=== PATIENT | male | born 1970 | race Caucasian/White ===

== ENCOUNTER 2017-04-10 05:39 | Outpatient (CLI) | payer OTHER ==
[~2017-04-10] VITALS: Ht 177.8 cm; Wt 104.4 kg
[~2017-04-10 05:39] MED LIST: ALPR1TAB2 PO; ASPI-586 PO; NAPR-243 PO; PRED10TA PO; SULF1TAB38 PO; TRAM50TA2 PO
[2017-04-14] MEDS ORDERED: PANT40TA2 PO (12:57)
[2017-04-14] MEDS ORDERED: SUCR1TAB36 PO (12:57)
== END 2017-04-10 14:06 ==
LOC: PREOP 05:39
PROVIDERS: ATTEND Surgery
DX: Z01.818 Encounter for other preprocedural examination (principal); Z12.11 Encounter for screening for malignant neoplasm of colon; Z86.010 Personal history of colon polyps; R04.2 Hemoptysis

== ENCOUNTER 2017-04-14 10:46 | Day surgery (SDC) | payer OTHER ==
[~2017-04-14] VITALS: Ht 177.8 cm; Wt 104.4 kg
[2017-04-14] MEDS ORDERED: NS IV 1000 ML 1,000 ML IV STA (10:53)
[2017-04-14] MEDS ORDERED: NS IV 500 ML 500 ML ONE (10:53)
--- NOTE | 2017-04-14 10:56 | Conscious Sedation/ASA ---
Conscious Sedation Pre-Proced Time Reviewed: 10:45 ASA Class: 2 Airway Mallampati Classification: ([place] appropriate class) I. II. III, IV Lungs Heart ASA score ASA 1: a normal healthy patient ASA 2: a patient with a mild systemic disease (mid diabetes, controlled hypertension, obesity ASA 3: a patient with a severe systemic disease that limits activity (angina , COPD, prior Myocardial infarction) ASA 4: a patient with an incapacitating disease that is a constant threat to life (CHF, renal failure) ASA 5: a moribund patient not expected to survive 24 hrs. (ruptured aneurysm) ASA 6: a declared brain patient whose organs are being harvested. For emergent operations, add the letter E after the classification Grade 2 Sedation Plan: Analgesia, Amnesia, Plan communicated to team members, Discussed options with patient/fam, Discussed risks with patient/fam Note The patient is an appropriate candidate to undergo the planned procedure, sedation, and anesthesia. The patient immediately re-assessed prior to indication. ROZINA BLACK MD Apr 14, 2017 10:56 am
--- NOTE | 2017-04-14 10:57 | Progress Note-Pre Operative ---
Pre-Operative Progress Note H&P Reviewed The H&P was reviewed, patient examined and no changes noted. Date Seen by Provider: Apr 14, 2017 Time Seen by Provider: 10:45 Date H&P Reviewed: Apr 14, 2017 Time H&P Reviewed: 10:45 Pre-Operative Diagnosis: hx polyps, hematamesis ROZINA BLACK MD Apr 14, 2017 10:57 am
[2017-04-14] MEDS ORDERED: ACETAMINOPHEN 325 MG TABLET/CAPLET (TYLENOL) PO PRN (11:00)
[2017-04-14] MEDS ORDERED: HURRICAINE EXT TUBE (BENZOCAINE) XX PRN (11:00)
[2017-04-14] MEDS ORDERED: LIDOCAINE JELLY 2% (XYLOCAINE) 5 ML TUBE MM PRN (11:00)
[2017-04-14] MEDS ORDERED: ONDANSETRON 4 MG/2 ML (SDV) Z0FRAN IV PRN (11:00)
[2017-04-14] MEDS ORDERED: fentaNYL INJECTION 100 MCG/2 ML AMP IVP PRN (11:00)
[2017-04-14] MEDS ORDERED: LIDOCAINE JELLY 2% (XYLOCAINE) 5 ML TUBE ONE (11:49)
[2017-04-14] MEDS ORDERED: MIDAZOLAM 2 MG/2 ML (VERSED) VIAL ONE ×7 (11:49→15:01)
[2017-04-14] MEDS: fentaNYL INJECTION 100 MCG/2 ML AMP IVP PRN ×3 (12:04→12:30)
[2017-04-14] MEDS: MIDAZOLAM 2 MG/2 ML (VERSED) VIAL IVP PRN ×6 (12:05→12:28)
[2017-04-14] MEDS ORDERED: fentaNYL INJECTION 100 MCG/2 ML AMP ONE (12:20)
--- NOTE | 2017-04-14 12:56 | Progress Note-Post Operative ---
Post-Operative Progess Note Surgeon (s)/Spring Intern (s) Surgeon ROZINA BLACK MD Spring Intern: none Pre-Operative Diagnosis hx polyps, hematamesis Post-Operative Diagnosis reflux esophagitis(class B), small HH(2cm), mil-moderate gastritis. chronic stage 1 ext and int hemorrhoids. Procedure & Operative Findings Date of Procedure 04/14/17 Procedure Performed/Findings EGD with bx. Colonoscopy. Anesthesia Type CS Estimated Blood Loss Estimated blood loss (mL): minimal Specimens/Packing Specimens Removed GE jxn, antrum. ROZINA BLACK MD Apr 14, 2017 12:56 pm
[2017-04-14] MEDS ORDERED: PANT40TA2 PO (12:57)
[2017-04-14] MEDS ORDERED: SUCR1TAB36 PO (12:57)
--- NOTE | 2017-04-14 12:58 | Discharge Inst-Surgical ---
D/C Lap Instructions-KIDO New, Converted, or Re-Newed RX: RX on Chart Follow Up PRN Activity as tolerated High Fiber Diet 25g or more per day Avoid Alcohol, Caffeine, Spicy [place] and Acid foods. Drink 64 fluid oz or more of fluids per day. Symptoms to Report: Fever over 101 degree F, Nausea/Vomiting If any problems/questions: Contact your physician or go to Emergency Room ROZINA BLACK MD Apr 14, 2017 12:57 pm
[2017-04-14 13:10] VITALS: BP 128/71
--- NOTE | 2017-04-14 13:13 | OPERATIVE REPORT ---
DATE OF SERVICE: 04/14/2017 PRIMARY FIELD OPERATIONS MANAGER: Radha Carson APRN PREOPERATIVE DIAGNOSIS: History of colon polyp, hematemesis. POSTOPERATIVE DIAGNOSIS: Reflux esophagitis class B, small hiatal hernia, approximately 2 cm in size, mild to moderate gastritis. A chronic stage I external and internal hemorrhoids. Remainder of the rectum and colon were normal. PROCEDURE: EGD with biopsy, colonoscopy. SURGEON: Dr. Black. ANESTHESIA: Conscious sedation. ESTIMATED BLOOD LOSS: Minimal. FINDINGS: EGD: Reflux esophagitis class B, small hiatal hernia approximately 2 cm in size, mild to moderate gastritis. No ulcers, polyps or any neoplasms as well as no abnormal vasculature. Colonoscopy: Chronic stage I external and internal hemorrhoids. The remainder of the rectum and colon were normal. There were no polyps identified. DISPOSITION: The patient tolerated the procedure well. INDICATIONS: The patient is a 38-year-old male who was referred over to us for an EGD and colonoscopy. He has had previous colonoscopies before where polyps were identified, removed and found to be benign. His last one was around 2007. He reports that he was then near [place], [place], for a family vacation and had a 3 day episode of hematemesis that was initiated by a cough. He was seen in the Emergency Department in [place] and underwent evaluation including a CT scan which did not show any abnormalities. He has not had any issues of hematemesis since that time. He reports that he has some reflux; however, not severe, and only pertaining to spicy foods. He reports that he does drink alcohol and drinks beer on a daily basis. However, did recently switch over to mixed drinks. DESCRIPTION OF PROCEDURE: The patient was brought to the endoscopy suite, laid in the left lateral decubitus position. After adequate IV pain and sedative medications and conscious sedation anesthesia, the mouthpiece was applied. Endoscope was placed in the mouth, visualizing the pharynx and hypopharyngeal region. Vocal cords, epiglottis and vallecula identified and appeared to be normal. The endoscope was then gently intubated at the esophageal opening, esophagus insufflated. Endoscope was then advanced to the first, second and third portions of the esophagus. At the level of the GE junction, a reflux esophagitis class B identified. There were no ulcers or strictures identified in this region. A biopsy was taken with forceps with visualization of good hemostasis. The endoscope was then advanced in the stomach. The endoscope retroflexed, visualizing a small hiatal hernia approximately 2 cm in size. A mild to moderate severity gastritis was noted. There were no formal ulcers, polyps or any neoplasms as well as no abnormal vasculature including no esophageal or gastric varices. A biopsy was taken of the stomach and antrum with visualization of good hemostasis. The endoscope was then advanced to the pylorus and the first and second portions of the duodenum which appeared normal. The endoscope was then slowly withdrawn taking a second look and suctioning residual air with no additional findings. The patient tolerated this portion of the procedure well. For his reflux esophagitis, hiatal hernia and gastritis, we will recommend the necessary lifestyle and diet accommodation including cessation of alcoholic and caffeinated beverages as well as avoidance of spicy, greasy and acidic foods. Also needs to proceed with small more frequent meals, avoidance of eating at night as well as head elevation while laying supine. We will also start him on Protonix 40 mg daily, as well as Carafate 1 gram q.i.d. for the next two weeks and also on a p.r.n. basis. Under the same conscious sedation anesthesia, we then proceeded with the colonoscopy portion of the procedure. A digital rectal examination was performed which revealed chronic stage I external and internal hemorrhoids, not actively edematous or inflamed and no bleeding. Normal sphincter tone was felt and there were no palpable masses. Prostate gland was palpable and appeared normal. The endoscope was then intubated into the anus and rectum and gently insufflated. The endoscope was then advanced thru the valves of [place] of the rectum with no polyps or any neoplasms identified. We then proceeded through the sigmoid colon where no diverticulosis was identified. Endoscope was then advanced to the remainder of the descending, transverse, and ascending colon to the cecum. These segments were normal as well. There were no polyps or any neoplasms identified throughout the colon or rectum. The endoscope was then slowly withdrawn while taking a second look and suctioning residual air with no additional findings. The patient tolerated the procedure well. We will recommend a high fiber diet with at least 30 grams of fiber per day as well as at least 64 fluid ounces of water daily to promote soft stools on a daily basis. We will recommend a followup colonoscopy in approximately 10 years. Job ID: [id number] DocumentID: [id number] Dictated Date: 04/14/2017 12:51:46 Sizing End Bander Date: 04/14/2017 13:12:26 Dictated By: ROZINA BLACK MD MTDD
[2017-04-14 13:35] VITALS: BP 132/77
[2017-04-14 13:40] VITALS: BP 132/77
== END 2017-04-14 13:40 | disposition home or self-care (01) ==
LOC: ENDO 10:46
PROVIDERS: ATTEND Surgery
DX: Z12.11 Encounter for screening for malignant neoplasm of colon (principal); Z86.010 Personal history of colon polyps; K64.0 First degree hemorrhoids; K21.0 Gastro-esophageal reflux disease with esophagitis; K44.9 Diaphragmatic hernia without obstruction or gangrene; K29.70 Gastritis, unspecified, without bleeding; F41.9 Anxiety disorder, unspecified; F17.210 Nicotine dependence, cigarettes, uncomplicated; F17.220 Nicotine dependence, chewing tobacco, uncomplicated; Z79.899 Other long term (current) drug therapy

== ENCOUNTER 2022-01-26 05:27 | Outpatient (CLI) | payer OTHER ==
[~2022-01-26] VITALS: Ht 18.3 cm; Wt 109.1 kg
[~2022-01-26 05:27] MED LIST changes: +PANT40TA2 PO; +SUCR1TAB36 PO
[2022-01-31] MEDS ORDERED: MELO15TA14 PO (10:04)
[2022-01-31] MEDS ORDERED: ATOR10TA66 PO (10:04)
[2022-02-02] MEDS ORDERED: TRAM50TA3 PO (10:46)
== END 2022-01-31 10:23 | disposition home or self-care (01) ==
LOC: PREOP 05:27
PROVIDERS: ATTEND Surgery
DX: Z01.818 Encounter for other preprocedural examination (principal)

== ENCOUNTER 2022-02-02 06:56 | Day surgery (SDC) | payer OTHER ==
[2022-02-02] VITALS (8 sets, daily range): BP systolic 130–159; BP diastolic 95–99
[~2022-02-02] VITALS: Ht 180 cm; Wt 109.0 kg
[~2022-02-02 06:56] MED LIST changes: +ATOR10TA66 PO; +MELO15TA14 PO
[2022-02-02] MEDS ORDERED: BUP/EPI 0.5% 1:200,000 (SENSORCAINE) 30 ML VIAL ONE (07:10)
[2022-02-02] MEDS ORDERED: ceFAZolin 2 GM IV Premixed 50 ML IV ONE (07:15)
[2022-02-02] MEDS: LACTATED RINGERS 1,000 ML IV PRN ×2 (07:50→10:07)
--- NOTE | 2022-02-02 08:25 | Progress Note-Pre Operative ---
Pre-Operative Progress Note H&P Reviewed The H&P was reviewed, patient examined and no changes noted. Time Seen by Provider: 08:13 Date H&P Reviewed: February 02, 2022 Time H&P Reviewed: 08:13 Pre-Operative Diagnosis: Left inguinal hernia, site marked RAFA LEBLANC DO February 02, 2022 08:24
[2022-02-02] MEDS ORDERED: MIDAZOLAM 2 MG/2 ML (VERSED) VIAL ONE (08:44)
[2022-02-02] MEDS ORDERED: ONDANSETRON 4 MG/2 ML (SDV) Z0FRAN ONE (08:44)
[2022-02-02] MEDS ORDERED: SEVOFLURANE (ULTANE) 15 ML INHAL SOLN ONE ×2 (08:44→10:47)
[2022-02-02] MEDS ORDERED: proPOfol 200 MG/20 ML (DIPRIVAN) VIAL IV ONE (08:44)
[2022-02-02] MEDS ORDERED: fentaNYL INJ 100 MCG/2 ML AMP ONE (08:44)
[2022-02-02] MEDS ORDERED: LIDOCAINE PF 2% 5 ML (XYLOCAINE) VIAL ONE (08:44)
[2022-02-02] MEDS ORDERED: HYDROmorphone 2 MG/ML VIAL (DILAUDID) ONE (09:56)
[2022-02-02] MEDS ORDERED: ROCURONIUM 50 MG/5 ML (ZEMURON) VIAL IV ONE ×2 (10:14→10:15)
[2022-02-02] MEDS ORDERED: GLYCOPYRROLATE 0.2 MG/ML (ROBINUL) 2 ML VIAL ONE (10:35)
[2022-02-02] MEDS ORDERED: NEOSTIGMINE 3 MG/3 ML VIAL ONE (10:35)
--- NOTE | 2022-02-02 10:45 | Progress Note-Post Operative ---
Post-Operative Progess Note Surgeon (s)/Transfer Engineer (s) Surgeon RAFA LEBLANC DO Transfer Engineer: Ayana Pre-Operative Diagnosis Left inguinal hernia, site marked Post-Operative Diagnosis Incarcerted Left inguinal hernia Cord lipoma ??obturator defect Procedure & Operative Findings Date of Procedure 02/02/22 Procedure Performed/Findings After informed consent was obtained, the patient was brought to the operating room and placed on the operating table in a supine position. He was sterilely prepped and draped in a normal fashion. Local lidocaine was used to infiltrate the skin above the umbilicus. I made an incision with #11 blade, carried down to the skin into subcutaneous tissue and then deepened down the subcutaneous tissue with Bovie electrocautery down to the fascia. Fascia was incised with Bovie electrocautery and bluntly entered the abdomen, swept a finger around, placed 0 Vicryl bdhaoc-cr-pizgc suture and placed limited trocar port under direct visualization. Created pneumoperitoneum, able to visualize the hernia and took a picture of this and then placed two 8 mm ports about 10 cm on either side of the midline port using a local lidocaine, 11 blade for stab incision and then advanced the robotic port under direct visualization. Once this was in, I then placed the patient in Trendelenburg and then placed the working instruments, the fenestrated bipolar and the scissors. Looked on the right side and did not see any signs of inguinal hernia. I could see small indirect/direct hernia defect on the left side. Next, I came across the peritoneum approximately 8 cm away from the hernia defect, going from the median umbilical ligament and going laterally about 17cm. I then carefully dissected the visceral peritoneum away and down and then in the midline, went through the parietal side and dissected down to the pubic tubercle, dissecting this down carefully pushing the peritoneum away, I was able to then visualize the pubic tubercle and Jose Manuel's ligament. I went 2 cm posterior and at this point, we then had a critical view of the dissection, able to dissect 2 cm across the midline to the right side, 2 cm posterior to the Jose Manuel's ligament, able to then parietalize the vas deferens and spermatic vessels right at the groove between Jose Manuel's and iliac vein and able to dissect, make sure there was no peritoneum between those two, able to see the indirect hernia space, took a picture of this, looked at the femoral space (no hernia seen); but there appeared to be an obturator defect. Then I carefully teased out the hernia sac and could visualize the indirect hernia space. Next I looked on the cord and cord structures. There was a large cord lipoma that I was able to reduce and cut off. This was then removed throught the port to get it out of the peritoneal space. I could clearly see the inguinal canal and the indirect space. Next I carried the posterior lateral dissection all the way out and then placed a 12 x 17 Midwieght Bard 3DMax mesh. It laid in nicely, cover ed the hernia defect and the rest of the area. It was above the peritoneum, sutured it at the pubic tubercle with a 3-0 Vicryl suture and tied this off. I next sutured out laterally to hold the mesh in place and it appeared to lay in very nicely. I then brought down the pneumoperitoneum to about 8 mmHg and then started closing the peritoneum. Started laterally and used a 2-0 V-lock barbed suture to start a running stitch to close the peritoneum. This was closed nicely, took a picture of the closure at this point, then removed both needles had switched to a suture deliver driver from the scissors. The patient was then placed back supine, removed all ports under direct visualization, allowed pneumoperitoneum to escape and then closed the supraumbilical incision, closing the fascia with 0 Vicryl suture previously placed. Copiously irrigated all incisions and then closed the two small 8 mm incisions with two interrupted 4-0 undyed Monocryl subcuticular stitches and closed the supraumbilical incision with three interrupted undyed Monocryl subcuticular stitch. Area was cleaned and dried. Dermabond was placed. The patient tolerated the procedure. The sponge, instrument and needle counts were correct at the end of the case. Dr. Piña assisted during this surgery by making incisions, closing incisions, helping to identify anatomy and passing/retrieving suture and needles. Anesthesia Type GET Estimated Blood Loss Estimated blood loss (mL): scant Specimens/Packing Specimens Removed cord lipoma RAFA LEBLANC DO February 02, 2022 10:45
[2022-02-02] MEDS ORDERED: TRAM50TA3 PO (10:46)
--- NOTE | 2022-02-02 10:48 | Discharge Inst-Surgical ---
Discharge Inst-Surgical Depart Medication/Instructions New, Converted or Re-Newed RX: Transmitted to Pharmacy Patient Instructions Follow up Appt: Make appointment for 1 week. [phone] Instructions: No lifting greater than 20 pounds. No strenuous activity. May shower in 24 hours, no tub bath or soaking. Use incentive spirometer at home as directed. No Smoking Skin/Wound Care: May remove bandages in am. You need to leave the Dermabond on incision it will fall off on it's own. Symptoms to Report: Appetite Changes, Extremity Discoloration, Numbness/Tingling, Swelling Increased, Bleeding Excessive, Eyesight Changes, Pain Increased, Urine Color Change, Constipation(Persistent), Fever over 101 degree F, Pain/Pressure in chest, Urinating Difficulty, Cough Up/Vomit Blood, Heart Beat Irreg/Pounding, Pain/Pressure in jaw, Cramps in feet or legs, Lightheadedness, Pain/Pressure in shoulder, Diarrhea(Persistent), Memory Changes Suddenly, Questions/Concerns, Weight gain consecutive days, Dizziness/Fainting, Nausea/Vomiting, Shortness of Breath, Weight gain over 2 pounds If questions or concerns contact your physician Or seek help at emergency department. Activity Activity as Tolerated: Yes Activity Instructions: Avoid Stress to Incision Driving Instructions: No Driving/Refer to Dr. [place] Discharge Diet: No Restrictions Diet After 24 Hours: Clear Liquid if Nauseous If Any Problems/Questions/Issu: Contact Your Physician, Go to Emergency Room Skin/Wound Care Infection Signs and Symptoms: Increased Redness, Foul Odor of Wound, Increased Drainage, Skin Itchy or Has a Rash, Increased Swelling, Temperature Above 101 F Wound Care Comment: heating pad to shoulder or neck tonight for pain Bathing Instructions: Shower Stitches/[place]/Dermabond Dis: [place] RAFA LEBLANC DO February 02, 2022 10:47
[2022-02-02] MEDS ORDERED: HYDROmorphone 2 MG/ML VIAL (DILAUDID) IV ONE (11:15)
[2022-02-02] MEDS ORDERED: morphine INJ 10 MG/ML 1ML (SYR OR VIAL) IVP ONE (11:15)
[2022-02-02] MEDS ORDERED: ONDANSETRON 4 MG/2 ML (SDV) Z0FRAN IVP PRN (11:15)
--- NOTE | 2022-02-02 14:22 | Anesthesia-General Post-Op ---
General Patient Condition Mental Status/LOC: Same as Preop Cardiovascular: Satisfactory Nausea/Vomiting: Absent Respiratory: Satisfactory Pain: Controlled Complications: Absent Post Op Complications Complications None Follow Up Care/Instructions Patient Instructions None needed. Anesthesia/Patient Condition Patient Condition Patient was doing well after the procedure with no complaints, stable vital signs, no apparent adverse anesthesia problems. SVITLANA COLLINS DO February 02, 2022 14:22
== END 2022-02-02 12:35 | disposition home or self-care (01) ==
LOC: SDC 06:56
PROVIDERS: ATTEND Surgery
DX: K40.30 Unilateral inguinal hernia, with obstruction, without gangrene, not specified as recurrent (principal); D17.6 Benign lipomatous neoplasm of spermatic cord; F17.210 Nicotine dependence, cigarettes, uncomplicated
CPT/HCPCS: 49507; 87081; C1781

== ENCOUNTER 2022-07-06 05:51 | Outpatient (CLI) | payer OTHER ==
[~2022-07-06 05:51] MED LIST changes: +TRAM50TA3 PO
[2022-07-06] MEDS ORDERED: HYDR25TA4 PO (14:59)
== END 2022-07-06 15:10 | disposition home or self-care (01) ==
LOC: PREOP 05:51
PROVIDERS: ATTEND Surgery
DX: Z01.818 Encounter for other preprocedural examination (principal)

== ENCOUNTER 2022-07-18 10:19 | Day surgery (SDC) | payer OTHER ==
[~2022-07-18] VITALS: Ht 180 cm; Wt 109.0 kg
[~2022-07-18 10:19] MED LIST changes: +HYDR25TA4 PO
[2022-07-18] MEDS ORDERED: HURRICAINE EXT TUBE (BENZOCAINE) XX PRN (10:30)
[2022-07-18] MEDS ORDERED: LACTATED RINGERS 1,000 ML IV STA (10:30)
[2022-07-18 10:40] VITALS: BP 131/83
--- NOTE | 2022-07-18 11:19 | Progress Note-Pre Operative ---
Pre-Operative Progress Note Date of Available H&P: Jul 05, 2022 Date H&P Reviewed: Jul 18, 2022 Time H&P Reviewed: 11:16 History & Physical: H&P Reviewed, Patient Examed, No changes noted Pre-Operative Diagnosis: Chronic Gastritis, screening colon RAFA LEBLANC DO Jul 18, 2022 11:19
[2022-07-18] MEDS ORDERED: PROPOFOL INJECTION 50 ML IV ONE ×2 (12:18→12:29)
--- NOTE | 2022-07-18 12:45 | Anesthesia-General Post-Op ---
MAC Patient Condition Mental Status/LOC: Same as Preop Cardiovascular: Satisfactory Nausea/Vomiting: Absent Respiratory: Satisfactory Pain: Controlled Complications: Absent Post Op Complications Complications None Follow Up Care/Instructions Patient Instructions None needed. Anesthesiology Discharge Order Discharge Order Patient is doing well, no complaints, stable vital signs, no apparent adverse anesthesia problems. No complications reported per nursing. DENA DOHERTY CRNA Jul 18, 2022 12:45
--- NOTE | 2022-07-18 12:49 | Progress Note-Post Operative ---
Post-Operative Progess Note Surgeon (s)/Buffing Turner And Counter (s) Surgeon RAFA LEBLANC DO Buffing Turner And Counter: Rodger Kapoor, MSIV Pre-Operative Diagnosis Chronic Gastritis, screening colon Post-Operative Diagnosis Gastritis Hiatal hernia Esophagitis Polyp diverticula int hemorrhoids Procedure & Operative Findings Date of Procedure 07/18/22 Procedure Performed/Findings EGD with bx Colon with cold bx PROCEDURE NOTE: After informed consent was obtained, the patient was brought to the endoscopy suite, placed in bed in left lateral decubitus position. He was administered IV sedation by the SKY DIVER who then monitored vitals the entire time, heart rate, blood pressure and pulse ox and the scope was inserted down the mouth through the esophagus into the stomach. On the way down, noted some mild esophagitis, took a picture, pushed into the stomach, pushed past the antrum into the duodenum. Duodenum looked good. Pulled back and did a biopsy of antrum, then retroflexed the scope, saw very small hiatal hernia, took a picture of this and then pulled the scope into the GE junction, took another picture of the hiatal hernia and then did a biopsy of the GE junction. Pushed the scope back into the stomach, suctioned all the air out of the stomach. At this point pulled the scope up the esophagus and out the mouth. Switched camera, switched gloves, went down below and started the colonoscopy. Pushed all the way into about 140 cm to get all the way to cecum. On the way in noted some diverticula and took a picture. Once in the cecum I took a picture of the appendiceal orifice, noted the ileocecal valve and then slowly withdrew the scope, insufflating to look circum- erentially at the gray starting in the cecum, up the ascending colon to the hepatic flexure, then down the transverse colon, splenic flexure, into the descending colon, down into the sigmoid. I found a small polyp here and did a cold biopsy. Finally into the rectum, retroflexed in the rectal vault, saw some minimal internal hemorrhoids and took a picture of them. The patient tolerated the procedure and he recovered in the endoscopy suite. Recommended for repeat colonoscopy in 5 years Anesthesia Type IV sedation by SKY DIVER Estimated Blood Loss Estimated blood loss (mL): scant Specimens/Packing Specimens Removed antral bx body of stomach bx GE jxn bx Sigmoid polyp RAFA LEBLANC DO Jul 18, 2022 12:49
[2022-07-18 12:50] VITALS: BP 98/63
--- NOTE | 2022-07-18 12:51 | Endoscopy Discharge Instruct ---
Endo Procedure/Findings Findings 1.: Gastritis 2.: Hiatal Hernia 3.: Polyp 4.: Diverticulosis, Internal Hemorrhoids Discharge Instructions - Activity: You might feel a little sleepy until tomorrow. This is due to the medicine you received to relax you. Until tomorrow, you should: NOT drive a car, operate machinery or power tools. NOT drink any alcoholic beverages. NOT make any important decisions or sign importortant papers. Do not return to work until tomorrow, unless otherwise instructed. Resume previous activities tomorrow. Diet: Start by taking liquids. If you tolerate liquids, advance to solid food. 1.: EGD in 3 years 2.: Colonscopy in 5 years Notify Physician - If you experience excessive bleeding, unusual abdominal pain, fever, or chest pain, contact your doctor immediately. RAFA LEBLANC DO Jul 18, 2022 12:51
[2022-07-18 12:55] VITALS: BP 115/73
[2022-07-18 13:00] VITALS: BP 141/88
[2022-07-18 13:05] VITALS: BP 141/88
[2022-07-18 13:29] VITALS: BP 130/87
== END 2022-07-18 13:32 | disposition home or self-care (01) ==
LOC: ENDO 10:19
PROVIDERS: ATTEND Surgery
DX: Z12.11 Encounter for screening for malignant neoplasm of colon (principal); D12.5 Benign neoplasm of sigmoid colon; K29.50 Unspecified chronic gastritis without bleeding; K21.00 Gastro-esophageal reflux disease with esophagitis, without bleeding; K57.30 Diverticulosis of large intestine without perforation or abscess without bleeding; K64.8 Other hemorrhoids; F17.210 Nicotine dependence, cigarettes, uncomplicated; Z80.0 Family history of malignant neoplasm of digestive organs

== ENCOUNTER → 2022-07-29 | Outpatient (CLI) | payer OTHER ==
[~2022-07-29] MED LIST changes: +CATHETER FLUSH 10 ML SYR IV PRN; +HOLD METFORMIN - RECEIVED CONTRAST 20 ML VIAL IV SCH; +IOHEXOL 350 MG/ML 100 ML (OMNIPAQUE 350) VIAL IV ONE; +NS 100 ML (IVPB) BAG IV ONE
[2022-07-29 14:20] LABS: CREATININE SERUM 0.91 MG/DL (0.60-1.30)
--- NOTE | 2022-07-29 15:06 | Diagnostic Imaging Report ---
PROCEDURE: CT abdomen and pelvis with contrast. TECHNIQUE: Multiple contiguous axial images were obtained through the abdomen and pelvis after administration of intravenous contrast. Auto Exposure Controls were utilized during the CT exam to meet ALARA standards for radiation dose reduction. All CT scans use one or more of the following dose optimizing techniques: automated exposure control, MA and/or KvP adjustment based on patient size and exam type or iterative reconstruction. INDICATION: 41 pound weight loss in last 3 months as well as pain in the groin region. COMPARISON: No prior studies are available for comparison. The lung bases are clear. No focal liver mass is identified. The gallbladder is unremarkable. There is no biliary ductal dilatation. Pancreas and spleen are unremarkable. No adrenal mass is identified. Kidneys are unremarkable. Aorta is calcified but nonaneurysmal. No central, retroperitoneal or mesenteric lymphadenopathy is detected. Small and large bowel loops are normal caliber. There is no free fluid or fluid collection. The bladder and prostate are unremarkable. There does appear to be some mild inflammatory stranding in the left groin, fat, nonspecific. No definite hernia is detected. IMPRESSION: Nonspecific stranding in the left groin. The study is otherwise unremarkable. Dictated by: Dictated on workstation # [id number]
== END ==
LOC: RAD 14:15
PROVIDERS: ATTEND Surgery
DX: R10.30 Lower abdominal pain, unspecified (principal); R63.4 Abnormal weight loss
CPT/HCPCS: 36415; 74177; 82565; 84520

== ENCOUNTER → 2022-08-18 | Outpatient (CLI) | payer OTHER ==
[~2022-08-18] MED LIST changes: -CATHETER FLUSH 10 ML SYR IV PRN; +GADOTERATE 0.5 MMOL/ML (CLARISCAN) 20 ML VIAL IV ONE; -HOLD METFORMIN - RECEIVED CONTRAST 20 ML VIAL IV SCH; -IOHEXOL 350 MG/ML 100 ML (OMNIPAQUE 350) VIAL IV ONE; -NS 100 ML (IVPB) BAG IV ONE
--- NOTE | 2022-08-18 13:08 | Diagnostic Imaging Report ---
PROCEDURE: MRI pelvis with and without contrast. TECHNIQUE: Multiplanar, multisequence MRI of the pelvis was performed with and without contrast. INDICATION: Perirectal pain. Prior hernia surgery. COMPARISON: CT abdomen pelvis of 07/29/2022. FINDINGS: High-resolution imaging of the rectum and anus shows no perianal fissure or abscess. No abnormal wall thickening within the rectum. Please note that MRI is not a screening tool for detection of rectal cancer but rather can be used for staging of a known rectal cancer. No pathologic enhancement within the pelvis. No inguinal, femoral or pelvic hernia. Hips are normal in appearance without avascular necrosis in the femoral heads. No hip effusion on either side. Low-grade partial-thickness tear of the right gluteus medius at the insertion of the greater trochanter. No peritrochanteric fluid collection to suggest bursitis. No free pelvic fluid. No pelvic or inguinal lymphadenopathy. IMPRESSION: 1. No perianal abscess or fissure. 2. No pelvic lymphadenopathy or other changes to suggest neoplasm within the pelvis. 3. No inguinal or pelvic hernia. Dictated by: Dictated on workstation # [id number]
== END ==
LOC: RAD 06:58
PROVIDERS: ATTEND Pediatrics
DX: K40.90 Unilateral inguinal hernia, without obstruction or gangrene, not specified as recurrent (principal)
CPT/HCPCS: 72197

== ENCOUNTER 2022-12-22 15:44 | Emergency (ER) | payer OTHER ==
[~2022-12-22 15:44] MED LIST changes: -GADOTERATE 0.5 MMOL/ML (CLARISCAN) 20 ML VIAL IV ONE
--- NOTE | 2022-12-22 16:20 | ED Upper Extremity ---
General Chief Complaint: Laceration Stated Complaint: LEFT HAND INJURY Nursing Triage Note: PT AMB TO [facility] 2 WITH CC OF LAC ON L HAND. 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 This occurred 45 minutes ago right before arrival. Was using a cast shell grinder when the cast shell grinder slipped causing to superficial laceration to the left dorsal hand. Had immediate bleeding. Applied bandage to the wound and bleeding sto pped. Last tetanus was 1 year ago. Not on blood thinners or diabetic. Normal active range of motion of the digits. Denies fever, chills, distal numbness and tingling, nausea, vomiting, bone deformity. Allergies and Home Medications Allergies Coded Allergies: naproxen (Verified Allergy, Severe, ANAPHYLAXIS, 01/31/22) hydrocodone (Verified Allergy, Mild, NAUSEA, 01/31/22) Patient Home Medication List Home Medication List Reviewed: Yes Alprazolam (Xanax) 1 Mg Tablet, 1 MG PO NEEDED, (Reported) Entered as Reported by: SURINDER KWOK on 12/19/14 1240 Aspirin (Aspir 81) 81 Mg Tablet.dr, 81 MG PO, (Reported) Entered as Reported by: LJ ALMANZA on 02/25/16 1652 Atorvastatin Calcium (Atorvastatin Calcium) 10 Mg Tablet, 10 MG PO HS, (Reported) Entered as Reported by: MICKEY BARROS on 01/31/22 1004 Hydrochlorothiazide (Hydrochlorothiazide) 25 Mg Tablet, 25 MG PO DAILY, (Reported) Entered as Reported by: RICKY BECKFORD on 07/06/22 1459 Tramadol HCl (Tramadol HCl) 50 Mg Tablet, 50 MG PO Q8H Prescribed by: RAFA LEBLANC on 02/02/22 1047 Review of Systems Constitutional: No chills, No diaphoresis, No malaise, No weakness Respiratory: No cough, No dyspnea on exertion Cardiovascular: No chest pain Gastrointestinal: No abdominal pain, No diarrhea, No nausea, No vomiting Genitourinary: No decreased output, No discharge Musculoskeletal: No back pain; joint pain, muscle pain Skin: change in color All Other Systems Reviewed Negative Unless Noted: Yes Past Namzfay-Naeqpv-Dmafal Hx Patient Social History Tobacco Use?: Yes Tobacco type used: Cigarettes Smoking Status: Current Everyday Smoker Substance use?: No Alcohol Use?: Yes Alcohol type: Beer Pt feels they are or have been: No Immunizations Up To Date First/Initial COVID19 Vaccinat: 2020 Second COVID19 Vaccination Trey: 2020 Third COVID19 Vaccination Date: 2020 Seasonal Allergies Seasonal Allergies: No Past Medical History Surgery/Hospitalization HX: HTN, ANXIETY Surgeries: Yes (SKIN GRAFT TO A FINGER, NECK SURGERY (2)) Respiratory: No Cardiac: Yes (BEHIND RIGHT KNEE) Deep Vein Thrombosis, High Cholesterol, Hypertension Neurological: No Reproductive Disorders: No Sexually Transmitted Disease: No HIV/AIDS: No Genitourinary: No Gastrointestinal: Yes (INGUINAL) Gastroesophageal Reflux, Polyps Musculoskeletal: No Degenerate Disk Disease, Arthritis Endocrine: No HEENT: No Loss of Vision: Bilateral Hearing Impairment: Denies Cancer: No Psychosocial: Yes (PANIC DISORDER) Anxiety, Depression Integumentary: No Blood Disorders: No Adverse Reaction/Blood Tranf: No (N/A) Family Medical History No Pertinent Family Hx Physical Exam Vital Signs Vital Signs - First Documented 12/22/22 15:52 Pulse 104 Resp 16 B/P (MAP) 154/100 (118) Pulse Ox 94 O2 Delivery Room Air Capillary Refill : Less Than 3 Seconds Height, Weight, BMI Height: 5'10.00" Weight: 230lbs. 3.2oz. [id number]; 33.64 BMI Method:Stated General Appearance: WD/WN, no apparent distress HEENT: PERRL/EOMI, normal ENT inspection, TMs normal, pharynx normal Neck: non-tender, full range of motion, supple Cardiovascular: regular rate, rhythm, no edema, no gallop Respiratory: chest non-tender, lungs clear, normal breath sounds, no respiratory distress, no accessory muscle use Gastrointestinal: normal bowel sounds, non tender, soft, no organomegaly Back: normal inspection, no CVA tenderness, no vertebral tenderness Shoulder: normal inspection, non-tender, no evidence of injury Elbow/Forearm: normal inspection, non-tender, no evidence of injury, normal ROM, Left Wrist: Yes normal inspection, Yes non-tender, Yes no evidence of injury Hand: Left, laceration (2 superficial laceration to left dorsum hand. Skin close to approximation. No active bleeding. No adipose involvement. 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 Skin is closed to approximation. No active bleeding. Up-to-date on his tetanus within the past year. Normal active range of motion of the digits. No muscular or tendon involvement. Discussed few stitches versus Steri-Strips. He requested Steri- Strips. Steri-Strips was applied. Glue was applied over the Steri-Strips. Keep the area clean and immobilized to prevent tear of the Steri-Strips. If any worsening symptoms such as redness, swelling to return back to ED. Impression Primary Impression: Hand laceration Disposition: HOME, SELF-CARE Condition: Stable Departure-Patient Inst. Decision time for Depature: 16:59 Referrals: MALU NOEL MD (PCP/Family) Primary Care Physician Patient Instructions: Laceration Repair With Glue ED JAVON GRUBBS Dec 22, 2022 16:20
[2022-12-22 17:04] VITALS: BP 154/100
== END 2022-12-22 17:04 | disposition home or self-care (01) ==
LOC: EDUNIT# 15:44 → ER 15:47
DX: S61.412A Laceration without foreign body of left hand, initial encounter (principal); F17.210 Nicotine dependence, cigarettes, uncomplicated; W31.89XA Contact with other specified machinery, initial encounter